=== PATIENT | female | born 1950 | race Caucasian/White ===

== ENCOUNTER 2019-09-08 06:28 | Day surgery (SDC) | payer MEDICARE ==
[~2019-09-08] VITALS: Ht 167.6 cm; Wt 73.5 kg
[2019-09-08] MEDS ORDERED: ATEN50 PO (06:55)
[2019-09-08] MEDS ORDERED: LEVO-T88 MCG PO (06:56)
== END 2019-09-08 08:35 | disposition home or self-care (01) ==
LOC: ORSCSDS 06:28
PROVIDERS: Ophthalmology
PROC: 08RJ3JZ Replacement of Right Lens with Synthetic Substitute, Percutaneous Approach (ICD-10-PCS; principal; 2019-09-08 08:00)
DX: H25.11 Age-related nuclear cataract, right eye (principal); I10 Essential (primary) hypertension; E03.9 Hypothyroidism, unspecified; F17.210 Nicotine dependence, cigarettes, uncomplicated; Z79.899 Other long term (current) drug therapy
CPT/HCPCS: J2001; J2250; J3010; J3301; J7040; V2632

== ENCOUNTER 2021-01-10 08:18 | Day surgery (SDC) | payer MEDICARE ==
[~2021-01-10] VITALS: Ht 167.6 cm; Wt 74.7 kg
[~2021-01-10 08:18] MED LIST: ATEN50 PO; LEVO-T88 MCG PO
--- NOTE | 2021-01-10 09:02 | NUR ---
01/10/21 0902 Irma Patton TETRACAIN DROP PLACED IN LEFT EYE AT 0858 BY ORS.CB PLEDGET PLACED IN LEFT EYE BY ORS.CB AT 0900
== END 2021-01-10 10:31 | disposition home or self-care (01) ==
LOC: ORSCSDS 08:18
PROVIDERS: Ophthalmology
PROC: 08RK3JZ Replacement of Left Lens with Synthetic Substitute, Percutaneous Approach (ICD-10-PCS; principal; 2021-01-10 09:30)
DX: H25.12 Age-related nuclear cataract, left eye (principal); E03.9 Hypothyroidism, unspecified; F17.210 Nicotine dependence, cigarettes, uncomplicated; Z79.899 Other long term (current) drug therapy
CPT/HCPCS: J2001; J2250; J3010; J3301; J7040; V2632